=== PATIENT | female | born 1995 | race African-American/Black ===

== ENCOUNTER 2021-08-31 08:07 | Emergency (ER) | payer OTHER ==
[2021-08-31 09:07] LABS: BASOPHIL 0.1 % (0-2); EOSINOPHIL 0.1 % (0-5); HCT 35.5 % (37.0-47.0); HGB 11.4 g/dl (12.5-16.0); LYMPHOCYTE 10.1 % (15-48); MCH 23.6 pg (25.0-31.0); MCHC 32.1 g/dL (32.0-36.0); MCV 73.3 fL (78.0-100.0); MONOCYTE 3.1 % (0-12); MPV 12.1 fL (6.0-9.5); NEUTROPHIL 86.2 % (41-80); NRBC 0; PLT 268 K/uL (150-400); RBC 4.84 M/uL (4.20-5.40); RDW 15.8 % (11.5-14.0); WBC 14.4 K/uL (4.0-10.5)
[2021-08-31 10:01] LABS: CREATININE 0.62 mg/dL (0.51-0.95); POTASSIUM 3.9 mmol/L (3.5-5.1)
[2021-08-31 10:02] LABS: ALBUMIN 3.8 g/dL (3.4-5.0); BILIRUBIN - TOTAL 0.7 mg/dL (0.2-1.0); GLOBULIN (CALCULATION) 4.5 g/dL; TOTAL PROTEIN 8.3 g/dL (6.4-8.2)
[2021-08-31 11:39] LABS: BILIRUBIN NEGATIVE (NEGATIVE); BLOOD NEGATIVE Ery/uL (NEGATIVE); CLARITY CLEAR (CLEAR); COLOR YELLOW (YELLOW); GLUCOSE (U) 3+ mg/dL (NORMAL); LEUKOCYTES NEGATIVE Leu/uL (NEGATIVE); NITRITE NEGATIVE (NEGATIVE); PROTEIN NEGATIVE (NEGATIVE); SPECIFIC GRAVITY 1.025 (1.001-1.030); UROBILINOGEN 0.2 mg/dL (0.2-1.0)
[2021-08-31] MEDS ORDERED: HYDROCODON-ACE1 EAC2 PO (13:01)
[2021-08-31] MEDS ORDERED: ONDANSETRON ODT4 MG PO (13:01)
== END 2021-08-31 13:47 | disposition home or self-care (01) ==
LOC: FER 08:07
PROVIDERS: Internal Medicine
DX: R10.31 Right lower quadrant pain (principal); E11.65 Type 2 diabetes mellitus with hyperglycemia; I10 Essential (primary) hypertension; Z79.4 Long term (current) use of insulin; Z88.0 Allergy status to penicillin; Z79.899 Other long term (current) drug therapy
CPT/HCPCS: 36415; 80053; 81003; 84443; 85025; J0692; J1170; J1200; J2405; J3490; J7030; Q9967